=== PATIENT | male | born 1975 | race Two or more races ===

== ENCOUNTER 2017-05-01 10:52 | Emergency (ER) | payer SELFPAY ==
[~2017-05-01] VITALS: Ht 188 cm; Wt 90.0 kg
[2017-05-01] MEDS ORDERED: SODIUM CHLORIDE 0.9% 1,000 ML IV ONE (11:16)
[2017-05-01] MEDS ORDERED: DIPH,PERTUSS(ACELL),TET VAC/PF 0.5 ML IM-VACC ONE ×2 (11:30→11:48)
[2017-05-01] MEDS ORDERED: SODIUM CHLORIDE FLUSH 10ML SYR IVF ONE (11:30)
[2017-05-01] MEDS ORDERED: ONDANSETRON 2MG/ML, 2ML IVPush ONE (11:30)
[2017-05-01] MEDS ORDERED: SODIUM CHLORIDE 0.9% 1,000ML IVBOLUS ONE (11:30)
[2017-05-01] MEDS ORDERED: ONDANSETRON 2MG/ML, 2ML ONE (11:48)
[2017-05-01 11:56] VITALS: BP 109/65
[2017-05-01 12:37] LABS: ASPARTATE AMINO TRANSFERASE 27 U/L (15-37); BLOOD UREA NITROGEN 14 mg/dL (7-18)
== END 2017-05-01 13:00 | disposition left against medical advice (07) ==
LOC: ED 12:54
DX: S00.01XA Abrasion of scalp, initial encounter (principal); F19.94 Other psychoactive substance use, unspecified with psychoactive substance-induced mood disorder; F10.129 Alcohol abuse with intoxication, unspecified; W19.XXXA Unspecified fall, initial encounter; Y93.89 Activity, other specified; Y92.410 Unspecified street and highway as the place of occurrence of the external cause; Y99.8 Other external cause status
CPT/HCPCS: 36415; 70450; 80053; 80307; 82140; 83690; 85025; 85610; 85730; 90471; 90715; 96361; 96374; 99285; J2405; J7030